=== PATIENT | male | born 1995 | race Caucasian/White ===

== ENCOUNTER → 2019-02-04 | Outpatient (CLI) | payer OTHER ==
[~2019-02-04] MED LIST: /CLON1TA OR; /QUET10TA PO; ABIL5TAB OR; CATA0.1T OR; CLEO150C PO; CONC18TA14 PO; CONC27TA4 PO; CONC36TA4 PO; CONCERTA; CONCERTA ER PO; CONCERTA PO; CYMB1CAP4 PO; DULO30CA PO; LORATADINE PO; NEURONTIN PO; NICO21PAT TD; OLOPATADINE HCL OU; QUET30TA OR; RITA20TA OR; RITALIN; SERO1TAB PO; SERO1TAB2 PO; SERO200T OR; SUBO8MIS SL; TRAZ100T OR; WELLTAB38 PO; ZOLOFT PO; ZYPR10TA OR; concerta; cymbalta PO; suboxone SL
[2019-02-04 18:40] LABS: C REACTIVE PROTEIN QUANTITATIV < 0.30 MG/DL (0.00-0.30); RHEUMATOID FACTOR QUANT < 10.0 IU/ML (<15.0); URIC ACID 6.8 MG/DL (3.5-7.2)
[2019-02-06 15:14] LABS: ANTINUCLEAR ANTIBODIES DIRECT Negative (Negative)
== END ==
LOC: M SMT 13:30
PROVIDERS: ATTEND Family Medicine
DX: M25.50 Pain in unspecified joint (principal)

== ENCOUNTER → 2020-04-30 | Outpatient (REF) ==
[~2020-04-30] MED LIST changes: -/CLON1TA OR; -/QUET10TA PO; +CLON-412 OR; -DULO30CA PO; +DULO30CA9 PO; +NICO21DI3 TD; -NICO21PAT TD
== END ==
LOC: M LAB 09:15